=== PATIENT | male | born 1975 | race Caucasian/White ===

== ENCOUNTER → 2021-02-24 | Outpatient (CLI) | payer OTHER, SELFPAY ==
--- NOTE | 2021-02-24 10:40 | LES_PTH ---
PATIENT: AARON RO LOC: [facility] U#:[id number] AGE/SX: 45/M ROOM: RE02/24/[address]: Dr. Ayush Alvarez MD : 1975 BED: DIS: 02/24/2021 SPEC #: [id number] RECD: 02/25/21 13:36 STATUS: KETTY RECsae #: [id number] JESÚS: 02/24/21 10:[address]: Ayush Alvarez DEPT: SURGICAL PATHOLOGY RECD BY: Arielle Barron ENTERED: 02/25/21 13:36 SP TYPE: Lesion OTHR DR: Dr. Stefano Washington MD Tissues: Skin of nose, NOS Procedures: Surgery Specimen Level IV HEADER OPERATION: Left intranasal lesion PRE-OP DIAGNOSIS: Left intranasal lesion TISSUE SUBMITTED: Left intranasal lesion MICROSCOPIC DIAGNOSIS Left intranasal lesion, biopsy: Benign inflamed vascular proliferation with ulceration and associated inflammation, most consistent with pyogenic granuloma. See comment. SJ:tone 02/28/2021 COMMENT Correlation with clinical findings and appropriate follow up are necessary. MICROSCOPIC DESCRIPTION Slides are reviewed. GROSS DESCRIPTION Received in fixative is one container labeled with the patient's name and designated left intranasal lesion. The specimen consists of a polypoid fragment of light pagan soft tissue measuring 0.9 x 0.6 x 0.3 cm. The specimen is bisected and totally submitted in one cassette. / AM:tone 02/25/21 TC:5 CPT: 32822
== END | disposition home or self-care (01) ==
LOC: LABSPEC 15:14
PROVIDERS: PCP Family Medicine; Referring Provider Otolaryngology; Visit Provider Otolaryngology
DX: J34.89 Other specified disorders of nose and nasal sinuses (principal)
CPT/HCPCS: 88305

== ENCOUNTER 2023-12-17 15:28 | Emergency (ER) | payer OTHER, SELFPAY ==
[2023-12-17] VITALS (7 sets, daily range): BP systolic 137–154; BP diastolic 86–103; PULSE 88–125; RESP 17–28; TEMP 36.3–37.1; O2SAT 93–97; BMI 34.2
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
[2023-12-17] MEDS: Morphine 4 MG/ML Syringe IV (15:44)
[2023-12-17] MEDS: Ondansetron 4 MG/2 ML Vial IV (15:44)
[2023-12-17] MEDS: Propofol 200 MG/20 ML Vial IV BOLUS (15:45)
--- NOTE | 2023-12-17 15:55 | RAD_ITS ---
STUDY: X-RAY - RIGHT SHOULDER REASON FOR EXAM: Male, 48 years old. Injury/Pain -- Clinically patient has a dislocation TECHNIQUE: 2 view(s) of the shoulder. COMPARISON: None. FINDINGS: Anterior subcoracoid dislocation of the humeral head. Normal acromioclavicular joint. Normal acromion. Normal humeral head and visualized proximal humerus. The soft tissue structures are unremarkable. Normal visualized pulmonary apex. RAD/Shoulder min 2 Views IMPRESSION: Anterior subcoracoid dislocation of the humeral head without associated fracture Electronically Signed: Flakito Bullock MD at 16:11 EDT ,
--- NOTE | 2023-12-17 16:30 | RAD_ITS ---
STUDY: X-RAY - RIGHT SHOULDER REASON FOR EXAM: Male, 48 years old. Postreduction TECHNIQUE: 2 view(s) of the shoulder. COMPARISON: December 17, 2023 3:53 PM FINDINGS: Previously noted anterior dislocation of the right humeral head has been reduced with christianity of joint to normal anatomic configuration. There is no associated fracture RAD/Shoulder min 2 Views IMPRESSION: Status post reduction of right shoulder dislocation. Electronically Signed: Flakito Bullock MD at 16:45 EDT ,
== END 2023-12-17 17:07 | disposition home or self-care (01) ==
PROVIDERS: Emergency Provider Emergency Medicine; PCP Family Medicine; Visit Provider Emergency Medicine
DX: S43.014A Anterior dislocation of right humerus, initial encounter (principal); I10 Essential (primary) hypertension; V18.0XXA Pedal cycle driver injured in noncollision transport accident in nontraffic accident, initial encounter
CPT/HCPCS: 23650; 73030; 96374; 96375; 99283; J7030; A4216; J2405